=== PATIENT | female | born 1945 | race Caucasian/White ===

== ENCOUNTER → 2016-08-05 | Outpatient (CLI) | payer OTHER, MEDICARE ==
[~2016-08-05] MED LIST: AMLODIPINE BESY10 MG PO; ASPIR 8181 M1 PO; ATORVASTATIN CA40 MG PO; BENAZEPRIL HCL10 MG PO; BISOPROLOL FUMAR5 MG PO; PROZAC20 MG PO; SINGULAIR 10 MG10 M1 PO
--- NOTE | ~2016-08-05 | EKG ---
[place] [address] [place] [employer] [facility] [place] [address] ELECTROCARDIOGRAM REPORT Name: CORBY ROSENTHAL Room #: REG CLI [facility] [id number] Admission: 08/05/16 Attend Phys: Ramiro Whitley MD Discharge: Date of : 45 Report #: [id number] THIS REPORT FOR: //name// [facility] Test Date: 2016-08-05 Test Time: 13:15:21 Pat Name: CORBY ROSENTHAL Department: Room: Gender: F Single [employer] Operator: PHILIP : 1945 Requested By: Ramiro Whitley Order Number: [id number] MD: Ethan Torrez Measurements Intervals [place] Rate: 61 P: 57 MT: 141 QRS: 44 QRSD: 90 T: 67 QT: 428 QTc: 431 Interpretive Statements Sinus rhythm Nonspecific ST segment abnormality No previous ECG available for comparison Electronically Signed On 08-05-2016 19:09:28 CDT by Ethan Torrez [email or web address] <ELECTRONICALLY SIGNED> By: Ethan Torrez MD, [facility] 08/05/16 1909 1315 1315 Ethan Torrez MD, FACC /EPI
== END | disposition home or self-care (01) ==
LOC: LITH 12:18
DX: N20.1 Calculus of ureter (principal); I10 Essential (primary) hypertension; E78.00 Pure hypercholesterolemia, unspecified; I25.10 Atherosclerotic heart disease of native coronary artery without angina pectoris; Z95.1 Presence of aortocoronary bypass graft; G43.909 Migraine, unspecified, not intractable, without status migrainosus; M10.9 Gout, unspecified; M79.7 Fibromyalgia; J45.909 Unspecified asthma, uncomplicated